=== PATIENT | female | born 1975 | race American Indian/Alaskan Native ===

== ENCOUNTER 2019-01-17 11:41 | Day surgery (SDC) | payer MEDICAID ==
[2019-01-17] MEDS ORDERED: XYLOCAINE MPF 2% ONE (13:00)
[2019-01-17] MEDS ORDERED: NACL 0.9% 1000 ML 1,000 ML IV SCH (13:00)
--- NOTE | 2019-01-17 13:06 | Discharge Summary ---
Short Stay Discharge Plan Activity: advance as tolerated Weight Bearing Status: Weight Bear as Tolerated Diet: regular Follow up with: RICH GOODEN MD [Other] - 7 Days
--- NOTE | 2019-01-17 13:09 | Operative Report ---
Operative Report Operative Report: Date of procedure: 01/17/2019 Procedure: Colonoscopy with Hot Biopsy Polypectomy and Ablation of colon polyp. Attending physician: Azeem Bentley M.D. Claims Assistant: Azeem Bentley M.D. Indication: Patient is a 43-year-old male who presents with a history of diffuse crampy abdominal pain, constipation with change in bowel habits, bloating with intestinal gas. This colonoscopy serves to evaluate patient so that treatment may be directed based on the findings. Consent: Informed consent was obtained after advising the patient and family regarding nature of this procedure, its indications, potential benefits as well as possible complications including but not limited to bleeding perforation and adverse reaction to medication, infection as well as other cardiopulmonary complications. An informed written and verbal consent was then obtained after due opportunity was provided for questions and answers. Monitoring: Patient was monitored continuously with pulse oximetry and electrocardiographic recordings as well as blood pressure recordings. Vital signs remained stable throughout this procedure with no untoward events. Preoperative assessment: Patient was assessed immediately prior to this procedure for capacity to tolerate monitored anesthesia care and moderate sedation as well as general anesthesia. Patient's ASA classification is 2, Mallampati class is 2, Hyomental distance is 3. Instrument: Olympus HD video colonoscope [id number] Medications: Propofol given intravenously in divided doses. For details please refer to anesthesia records. Description of procedure: Patient was placed in the left lateral decubitus position after achieving sedation, a digital rectal examination was performed following which the colonoscope was introduced into the anal verge and advanced to the cecum which was identified by the cecal valve, the appendiceal orifice, as well as by the cecal strap and direct transillumination. The colonoscope was subsequently withdrawn with careful inspection of all mucosal surfaces. Patient tolerated this procedure well and was subsequently taken to the recovery room. The following findings were noted. Findings: Patient had some retained stool in the cecum ascending colon and transverse colon. There were a few scattered diverticula in the sigmoid colon. Patient had a sessile 6 mm polyp in the sigmoid colon which was removed by hot biopsy polypectomy. The colon was moderately tortuous. On the retroflexed view of the anal verge, patient had internal hemorrhoids. Impression: Sigmoid colon polyp status post hot biopsy polypectomy. Rectal polyps status post hot biopsy polypectomy Diverticulosis. Retained stool Internal hemorrhoids. Plan: Follow pathology report. High-fiber diet. Follow up as outpatient.
--- NOTE | 2019-01-17 13:28 | Anesthesia Day of Surgery ---
Anesthesia Day of Surgery - Day of Surgery Patient Examined: Yes Patient H&P Reviewed: Yes Patient is NPO: Yes
--- NOTE | 2019-01-17 13:29 | Anesthesia Consultation ---
Anesthesia Consult and Med Hx Date of service: 01/17/19 - Airway Anesthetic Teeth Evaluation: Good, Crowns ROM Head & Neck: Adequate Mental/Hyoid Distance: Adequate Mallampati Class: Class II Intubation Access Assessment: Good - Pre-Operative Health Status ASA Pre-Surgery Classification: ASA2 Proposed Anesthetic Plan: MAC - Pulmonary Hx Smoking: Yes Hx Asthma: Yes - Central Nervous System Hx Neuromuscular Disorder: Yes (Headaches) Hx Psychiatric Problems: Yes (Anxiety/Depression) - Gastrointestinal Hx Gastroesophageal Reflux Disease: Yes - Hematic Hx Anemia: Yes
[2019-01-17] MEDS ORDERED: DIPRIVAN 10 MG/ML IV ONE ×2 (13:50)
[2019-01-17 16:06] VITALS: BP 108/65
== END 2019-01-17 11:42 | disposition home or self-care (01) ==
LOC: GIO 11:41
PROVIDERS: ATTEND Internal Medicine Gastroenterology
DX: D12.5 Benign neoplasm of sigmoid colon (principal); K64.8 Other hemorrhoids; K57.30 Diverticulosis of large intestine without perforation or abscess without bleeding; K21.9 Gastro-esophageal reflux disease without esophagitis; F17.210 Nicotine dependence, cigarettes, uncomplicated; D64.9 Anemia, unspecified; J45.909 Unspecified asthma, uncomplicated; Z79.899 Other long term (current) drug therapy; Z98.890 Other specified postprocedural states
CPT/HCPCS: 45384; 81025; 88305; J2704; J7030